=== PATIENT | female | born 1985 | race Caucasian/White ===

== ENCOUNTER 2017-07-18 06:07 | Day surgery (SDC) | payer OTHER ==
[~2017-07-18] VITALS: Ht 160 cm; Wt 56.1 kg
[2017-07-18] VITALS (12 sets, daily range): BP systolic 109–122; BP diastolic 54–67; PULSE 62–86; RESP 0–21; Ht 160 cm; Wt 56.1 kg
[2017-07-18] MEDS ORDERED: ROCURONIUM 50 MG INJ ONE (06:42)
[2017-07-18] MEDS ORDERED: MIDAZOLAM 1 MG/ML 2 ML INJ ONE (06:42)
[2017-07-18] MEDS ORDERED: NEOSTIGMINE 3 MG/3 ML SYRINGE ONE (06:42)
[2017-07-18] MEDS ORDERED: FENTAnyl 50 MCG/ML VIAL ONE (06:42)
[2017-07-18] MEDS ORDERED: PROPOFOL 20 ML ONE (06:42)
[2017-07-18] MEDS ORDERED: GLYCOPYRROLATE 0.4 MG INJ ONE (06:42)
[2017-07-18] MEDS ORDERED: LIDOCAINE 2% (SDV) 5 ML INJ ONE (06:42)
[2017-07-18] MEDS ORDERED: DEXAMETHASONE 4 MG/ML 1 ML INJ ONE (06:43)
[2017-07-18] MEDS ORDERED: SUGAMMADEX SODIUM 200 MG/2 ML VIAL IV ONE (06:43)
[2017-07-18] MEDS ORDERED: ONDANSETRON 4 MG INJ ONE (06:43)
[2017-07-18] MEDS ORDERED: SUCCINYLCHOLINE CHLORIDE 100 MG/5 ML SYG IV ONE (06:48)
[2017-07-18] MEDS ORDERED: EPHEDrine SULFATE 50 MG/5 ML SYG IV PRN (07:00)
[2017-07-18] MEDS ORDERED: HYDROmorphONE (0.2 MG/ML) 10ML SYG IV PRN ×3 (07:00)
[2017-07-18] MEDS ORDERED: ONDANSETRON 4 MG INJ IV PRN ×2 (07:00→09:00)
[2017-07-18] MEDS ORDERED: FENTAnyl 50 MCG/ML VIAL IV PRN ×2 (07:00)
[2017-07-18] MEDS ORDERED: ATROPINE 1 MG/10 ML SYRINGE IV PRN (07:00)
[2017-07-18] MEDS ORDERED: DIPHENHYDRAMINE 50 MG INJ IV PRN (07:00)
[2017-07-18] MEDS ORDERED: MIDAZOLAM 1 MG/ML 2 ML INJ IV PRN (07:00)
[2017-07-18] MEDS ORDERED: LABETALOL HCL 20MG INJ IV PRN (07:00)
[2017-07-18] MEDS ORDERED: hydrALAzine 20 MG INJ IV PRN (07:00)
[2017-07-18] MEDS ORDERED: MEPERIDINE 25 MG INJ IV PRN (07:00)
[2017-07-18] MEDS ORDERED: morphine (1 MG/ML) 10ML SYRINGE IV PRN ×3 (07:00)
[2017-07-18] MEDS ORDERED: OXYCODONE/ACETAMINOPHEN (5/325) TAB PO PRN ×4 (07:00→09:00)
[2017-07-18] MEDS ORDERED: BUPIVACAINE 0.25% (MPF) 30 ML INJ ONE (07:09)
[2017-07-18] MEDS ORDERED: BUPIVACAINE 0.5%/EPI (SDV) 10 ML INJ ONE ×2 (07:09→07:55)
--- NOTE | 2017-07-18 07:25 | HPN ---
Date/Time of Note Date/Time of Note DATE: 07/18/17 TIME: 07:25 Interval H&P Admission Note Pt. seen H&P reviewed: No system changes HAI MCGOVERN MD Jul 18, 2017 07:25
--- NOTE | 2017-07-18 08:43 | OPR ---
Date/Time of Note Date/Time of Note DATE: 07/18/17 TIME: 08:37 Operative Report Procedure Date: Jul 18, 2017 Preoperative Diagnosis Gallstones without obstruction Postoperative Diagnosis Gallstones without obstruction Operation Performed Laparoscopic cholecystectomy Surgeon: HAI MCGOVERN MD Anesthesia Type: general Anesthesiologist: SAMY GOLDEN MD Estimated Blood Loss: 0 - 10 ml's Transfusion Required: no Specimens Gallbladder Tubes/Drains None Complications: no Pt Condition Post Procedure: stable Disposition: PACU Indications Symptomatic cholelithiasis Operative\Procedure Findings Chronically inflamed gallbladder Procedure Description After satisfactory general endotracheal anesthesia was achieved, the abdomen was prepped and draped in the usual fashion. The abdomen was insufflated with carbon dioxide through an umbilical Veress needle to 15 mmHg pressure. The Veress needle was removed and the umbilical incision extended to 5 mm through which a 5 mm trocar was placed. A 5 mm 0 lens was placed. Laparoscopy showed a chronically inflamed gallbladder covered with omental adhesions. Under direct visualization a 12 mm epigastric trocar was placed as well as 2 5 mm right lateral trochars. The dome of the gallbladder was grasped and retracted superiorly. Omental adhesions were taken down with blunt and electrocautery dissection, enabling Rutherford's pouch to be grasped and retracted infero- laterally. The hepatoduodenal ligament was carefully dissected between the gallbladder and the well-visualized common bile duct. The cystic duct was then dissected and quadruply hemoclipped and divided high at the junction of the gallbladder and the cystic duct. The cystic artery was identified immediately posteriorly. This was triply hemoclipped and divided between clips. The gallbladder was then dissected from below using electrocautery dissection and placed fully intact into an Endo Catch removed by the epigastric route. Hemostasis of the liver bed was total and irrigant returned clear. The abdomen was then desufflated and all trochars were removed. The fascia of the epigastrium was closed with 2 sutures of 0 Vicryl. The skin punctures were infiltrated with 30 cc of 0.5% Marcaine with epinephrine, and closed with calvin. Sponge and needle counts were reported as correct 2 HAI MCGOVERN MD Jul 18, 2017 08:43
[2017-07-18] MEDS ORDERED: morphine 2 MG INJ IV PRN (09:00)
[2017-07-22] MEDS ORDERED: SEVOFLURANE 15 MIN ONE (06:30)
[2017-07-22] MEDS ORDERED: LABETALOL HCL 20MG INJ ONE (06:30)
[2017-07-22] MEDS ORDERED: SUCCINYLCHOLINE CHLORIDE 100 MG/5 ML SYG IV ONE (06:30)
[2017-07-22] MEDS ORDERED: CEFAZOLIN 1 GM INJ ONE (06:30)
[2017-07-22] MEDS ORDERED: MIDAZOLAM 1 MG/ML 2 ML INJ ONE (06:32)
[2017-07-22] MEDS ORDERED: PROPOFOL 20 ML ONE (06:32)
[2017-07-22] MEDS ORDERED: NEOSTIGMINE 3 MG/3 ML SYRINGE ONE (06:32)
[2017-07-22] MEDS ORDERED: LIDOCAINE 2% (SDV) 5 ML INJ ONE (06:32)
[2017-07-22] MEDS ORDERED: FENTAnyl 50 MCG/ML VIAL ONE (06:32)
[2017-07-22] MEDS ORDERED: GLYCOPYRROLATE 0.4 MG INJ ONE (06:32)
[2017-07-22] MEDS ORDERED: ROCURONIUM 50 MG INJ ONE (06:32)
[2017-07-22] MEDS ORDERED: SUGAMMADEX SODIUM 200 MG/2 ML VIAL IV ONE (06:34)
[2017-07-22] MEDS ORDERED: DEXAMETHASONE 4 MG/ML 1 ML INJ ONE (08:15)
[2017-07-22] MEDS ORDERED: ONDANSETRON 4 MG INJ ONE (08:20)
== END 2017-07-18 11:20 | disposition home or self-care (01) ==
LOC: SDS 06:07
PROVIDERS: ATTEND Surgery
DX: K80.10 Calculus of gallbladder with chronic cholecystitis without obstruction (principal)
CPT/HCPCS: 47562; 84703; 88304; J1100; J1170; J2250; J2405; J3010; Z7512; Z7610; J2710; J7999